=== PATIENT | female | born 1955 ===

== ENCOUNTER 2021-06-29 10:00 | Inpatient (IN) | payer OTHER ==
[~2021-06-29] VITALS: Ht 165.1 cm; Wt 68.5 kg
[2021-06-29] MEDS ORDERED: ADULT LOW DOSE81 M1 PO (11:54)
[2021-06-29] MEDS ORDERED: ZESTRIL20 MG PO (11:54)
[2021-06-29] MEDS ORDERED: SIMVASTA PO (11:56)
[2021-06-29] MEDS ORDERED: ANTIVERT PO (11:57)
[2021-06-29] MEDS ORDERED: PROTONI PO (11:57)
[2021-06-29] MEDS ORDERED: ALLEGRA PO (11:58)
[2021-07-07] MEDS ORDERED: FAMOTIDINE20 MG (08:52)
[2021-07-07] MEDS ORDERED: CLONAZEPAM1 MG (08:53)
[2021-07-07] MEDS ORDERED: SIMVASTATIN20 MG (08:53)
[2021-07-07] MEDS ORDERED: MECLIZINE HCL12.5 MG (08:53)
[2021-07-07] MEDS ORDERED: PANTOPRAZOLE SO40 MG (08:53)
[2021-07-07] MEDS ORDERED: ALLEGRA ALLERGY60 MG (08:54)
[2021-07-09] MEDS ORDERED: PROTONIX40 MG PO (12:09)
[2021-07-09] MEDS ORDERED: HYOSCYAMINE0.125 M1 SL (12:09)
[2021-07-09] MEDS ORDERED: INTEGRA F CAPS1 EACH PO (12:10)
[2021-07-09] MEDS ORDERED: INTESTINEX680 M1 PO (12:10)
[2021-07-09] MEDS ORDERED: ULTRACET PO (12:10)
== END 2021-07-09 12:42 | disposition home or self-care (01) | DRG 330 ==
LOC: O/R 07-06 08:44 → SURG 07-06 08:44 → SURH 07-06 09:00 → SURG 07-07 09:08
PROVIDERS: ADMIT Surgery; ATTEND Surgery
PROC: 0DTP4ZZ Resection of Rectum, Percutaneous Endoscopic Approach (ICD-10-PCS; 2021-07-06)
PROC: 0DTN4ZZ Resection of Sigmoid Colon, Percutaneous Endoscopic Approach (ICD-10-PCS; principal; 2021-07-06 09:00)
PROC: 30233N1 Transfusion of Nonautologous Red Blood Cells into Peripheral Vein, Percutaneous Approach (ICD-10-PCS; 2021-07-08)
DX: K57.32 Diverticulitis of large intestine without perforation or abscess without bleeding (principal); D62 Acute posthemorrhagic anemia; I10 Essential (primary) hypertension; E78.5 Hyperlipidemia, unspecified